=== PATIENT | male | born 1950 | race Caucasian/White ===

== ENCOUNTER 2023-08-24 18:39 | Emergency (ER) | payer OTHER, BC ==
[2023-08-24 18:49] VITALS: BP 147/96; PULSE 82; RESP 18; TEMP 98.1; BMI 27.8
[2023-08-24] MEDS ORDERED: MORPHINE SULFATE 2 MG/ML SYRINGE ONE (19:24)
[2023-08-24] MEDS: morphine CARPU-JECT 2 MG/1 ML DISP.SYRIN IVPUSH ONE (19:49)
[2023-08-24 19:54] LABS: RDW 14.4 % (11.9-15.9)
[2023-08-24 20:01] LABS: INR 0.94 (0.83-1.09); PROTHROMBIN TIME (PATIENT) 10.6 SEC (9.7-13.0)
[2023-08-24 20:14] LABS: POTASSIUM 4.7 mmol/L (3.5-5.1)
[2023-08-24 20:16] LABS: ALBUMIN 4.1 g/dl (3.4-5.0); CALCIUM 9.9 mg/dL (8.5-10.1)
[2023-08-24 20:19] LABS: CREATININE 1.3 mg/dL (0.55-1.3)
[2023-08-24 20:21] LABS: BILIRUBIN,TOTAL 0.6 mg/dL (0.2-1); TOT PROT 8.1 g/dl (6.4-8.2)
[2023-08-24 20:34] LABS: ERYTHROCYTE SEDIMENTATION RATE 9 mm/hr (0-20)
[2023-08-24 20:39] LABS: BASO % 0.2 % (0-2.0); EOS % 0.5 % (0-4.5); HEMATOCRIT 47.5 % (35.4-49); LYMPH % 11.5 % (8-40); MCH 29.7 pg (25.7-33.7); MCHC 33.7 g/dl (32.0-35.9); MEAN CELL VOLUME 88.1 fl (80-96); MEAN PLT VOLUME 7.7 fl (7.5-11.1); MONO % 4.7 % (3.8-10.2); NEUT % 83.1 % (42.8-82.8); PLATELET COUNT 379 10^3/uL (134-434); RBC 5.39 M/mm3 (4.00-5.60); WHITE BLOOD COUNT 13.3 K/mm3 (4.0-10.0)
[2023-08-24] MEDS ORDERED: KETOROLAC TROMETHAMINE 15 MG/ML VIAL ONE (22:58)
[2023-08-24] MEDS: KETOROLAC TROMETHAMINE 15 MG/ML VIAL IVPUSH ONE (23:02)
== END 2023-08-25 00:51 | disposition home or self-care (01) ==
LOC: JER 18:39
PROC: 3E0333Z Introduction of Anti-inflammatory into Peripheral Vein, Percutaneous Approach (ICD-10-PCS; principal; 2023-08-24)
PROC: 3E033NZ Introduction of Analgesics, Hypnotics, Sedatives into Peripheral Vein, Percutaneous Approach (ICD-10-PCS; 2023-08-24)
DX: M25.562 Pain in left knee (principal); M25.462 Effusion, left knee; Y93.01 Activity, walking, marching and hiking
CPT/HCPCS: 36415; 73562-TC-LT-FY; 80053; 85025; 85610; 85651; 85730; 86140; 86850; 86900; 86901; 87040; 96374; 96375; 99284-25